=== PATIENT | female | born 1990 | race Hispanic/Latino ===

== ENCOUNTER 2018-11-30 20:50 | Inpatient (IN) | payer OTHER ==
[2018-11-30] MEDS ORDERED: BRETHINE IVP PRN (22:42)
[2018-11-30] MEDS ORDERED: XYLOCAINE 2% INFILTRATI ONE (22:42)
[2018-11-30] MEDS ORDERED: ZOFRAN IV PRN (22:42)
[2018-11-30] MEDS ORDERED: BRETHINE SUB-Q PRN (22:42)
[2018-11-30] MEDS ORDERED: MINERAL OIL PO PRN (22:42)
[2018-11-30 22:59] LABS: Basophils % (Auto) 0.2 % (0.0-1.8); Eosinophils # (Auto) 0.2 K/mm3 (0.0-0.4); Eosinophils % (Auto) 1.5 % (0.0-4.3); Hemoglobin 11.8 gm/dl (10.1-14.3); Lymphocytes # (Auto) 3.4 K/mm3 (1.2-5.4); Lymphocytes % (Auto) 26.9 % (13.4-35.0); Mean Corpuscular HGB Conc 35 % (30-34); Mean Corpuscular Volume 93 fl (79-97); Monocytes # (Auto) 0.8 K/mm3 (0.0-0.8); Monocytes % (Auto) 6.3 % (0.0-7.3); Platelet Count 247 K/mm3 (140-440); Red Blood Count 3.65 M/mm3 (3.65-5.03); Red Cell Distribution Width 14.1 % (13.2-15.2)
[2018-11-30] MEDS ORDERED: PITOCin/NS 20 UNIT/1000ML DRIP 20 UNITS/1,000 ML BAG IV SCH (23:00)
[2018-11-30] MEDS ORDERED: CERVIDIL VG ONE (23:14)
[2018-11-30] MEDS ORDERED: PEPCID PO ONE (23:53)
[2018-12-01] MEDS: LACTATED RINGERS 1,000 ML IV SCH ×2 (00:07→04:22)
--- NOTE | 2018-12-01 00:21 | History and Physical Report ---
History of Present Illness Date of examination: 12/01/18 Date of admission: 11/30/18 20:50 Chief complaint: IOL postdates History of present illness: Menstrual History Regularity: regular Menses every: 28 days Duration: 4-7 LMP: 02/13/2018 LMP reliability: month known LMP character: normal test type: urine test BC at conception: none Planned ? no EDC Calculations LMP: 11/20/2018 EDC Confirmation: 11/23/2018 Gestational Age: 25 4/7 weeks Past History : 3 Term Births: 2 Premature Births: 0 Living Children: 2 Para: 2 Mult. Births: 0 Prev : 0 Prev. attempt? 0 Aborta: 0 Elect. Ab: 0 Spont. Ab: 0 Ectopics: 0 # 1 Delivery date: 2007 Weeks Gestation: 40 labor: no Delivery type: Infant Sex: Female weight: 7-5 Comments: IOL for PD # 2 Delivery date: 2010 Weeks Gestation: 39 labor: no Delivery type: Sex: Female Comments: eIOL Past Medical History: Negative Past Medical History Past Surgical History: Negative Past Surgical History Family History Summary: Sister (full) - Has Family History of Melanoma - Entered On: 08/14/2018 Aunt - Has Family History of Melanoma - Entered On: 08/14/2018 Social History: Patient is single Smoking History: Patient is a former smoker. 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 Infection History Hx of STD: none HIV Risk Eval: low risk Hepatitis B Risk Eval: low risk Personal hx. of genital herpes: no Partner hx. of genital herpes: no Rash, Viral, or Febrile illness since last LMP? no Varicella/Chicken Pox Status: Previous Disease TB Risk: no Genetic History Congenital Heart Defect: Mom: no Dad: no Todd Disease: Mom: no Dad: no Thalassemia Mom: no Dad: no Neural Tube Defect Mom: no Dad: no Down's Syndrome Mom: no Dad: no Sylvester-Sachs Mom: no Dad: no Sickle Cell Disease/Trait Mom: no Dad: no Hemophilia Mom: no Dad: no Muscular Dystrophy Mom: no Dad: no Cystic Fibrosis Mom: no Dad: no [place] Chorea Mom: no Dad: no Mental Retardation Mom: no Dad: no Fragile X Mom: no Dad: no Other Genetic/Chromosomal Disorder Mom: no Dad: no Child w/other defect Mom: no Dad: no Enviromental Exposures Xray Exposure: no Medication, drug, or alcohol use since LMP: no Chemical/Other Exposure: no Exposure to Cat Liter: no Hx of Parvovirus (Fifth Disease): no Occupational Exposure to Children: none Active Medications (reviewed today): None Current Allergies (reviewed today): No known allergies Past History Past Medical History: other (see HPI) Past Surgical History: other (Menstrual History ) 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 ) Family/Genetic History: other (Menstrual History ) Social history: other (Menstrual History ) - Obstetrical History Expected Date of Delivery: 11/23/18 Actual Gestation: 41 Week(s) 1 Day(s) : 3 Para: 2 Hx # Term Pregnancies: 2 Number of Pregnancies: 0 Spontaneous Abortions: 0 Induced : 0 Number of Living Children: 2 Medications and Allergies Allergies Allergy/AdvReac Type Severity Reaction Status Date / Time No Known Allergies Allergy Verified 11/30/18 22:48 Active Meds: Active Medications Ephedrine Sulfate (Ephedrine Sulfate) 10 mg IV Q2M PRN PRN Reason: Hypotension Oxytocin/Sodium Chloride (Pitocin/Ns 20 Unit/1000ml Drip) 20 units in 1,000 mls @ 125 mls/hr IV DIRECT DILIP Lactated Ringer's (Lactated Ringers) 1,000 mls @ 125 mls/hr IV DIRECT DILIP Mineral Oil (Mineral Oil) 30 ml PO QHS PRN PRN Reason: Constipation Ondansetron HCl (Zofran) 4 mg IV Q8H PRN PRN Reason: Nausea And Vomiting Terbutaline Sulfate (Brethine) 0.25 mg SUB-Q ONCE PRN PRN Reason: Hyperstimulation/Hypertonicity Terbutaline Sulfate (Brethine) 0.25 mg IVP ONCE PRN PRN Reason: Hyperstimulation/Hypertonicity Review of Systems All systems: negative Genitourinary: contractions - Vital Signs Vital signs: Vital Signs Pulse BP 78 115/70 11/30/18 21:37 11/30/18 21:37 Temp Pulse Resp BP Pulse Ox 99.3 F 68 18 122/73 95 11/30/18 21:38 11/30/18 23:39 11/30/18 21:38 11/30/18 23:39 11/30/18 22:00 - Physical Exam Breasts: Cardiovascular: Regular rate, Normal S1, Normal S2 Abdomen: Positive: normal appearance, soft, normal bowel sounds. Negative: distention, tenderness Genitourinary (Female): Positive: normal external genitalia, normal perenium Vulva: both: normal Vagina: Positive: normal moisture. Negative: discharge Cervix: Negative: lesion, discharge Uterus: Positive: normal size, normal contour Adnexa: both: normal Anus/Rectum: Positive: normal perianal skin, heme negative. Negative: rectal mass, hemorrhoids Extremities: Deep Tendon Reflex Grade: Normal +2 - Obstetrical FHR: auscultation normal, category 1 Uterine Contraction Monitor Mode: External Cervical Dilatation: 2 Cervical Effacement Percentage: 60 station: -3 Uterine Contraction Pattern: Regular Uterine Tone Measurement Phase: Contraction Uterine Contraction Intensity: Mild Results Result Diagrams: 11/30/18 22:15 Abnormal lab results 11/30/18 Range/Units 22:15 WBC 12.7 H (4.5-11.0) K/mm3 MCHC 35 H (30-34) % Seg Neutrophils # 8.3 H (1.8-7.7) K/mm3 All other labs normal. Assessment and Plan 28 y.o. IUP at 41w1d presents for scheduled postdates IOL. Routine admission orders in EMR. GBS is negative. on chart. VSSAF. Cervidil placed by RN. Pt desires epidural for pain management when labor begins. Expecting a baby boy, desires circumcision. Will continue to monitor for labor, anticipate .
[2018-12-01] MEDS ORDERED: SUBLIMAZE IV PRN (01:30)
[2018-12-01] MEDS ORDERED: SUBLIMAZE ONE (01:35)
[2018-12-01] MEDS ORDERED: NARCAN 2 MG/2 ML IV PRN (04:16)
--- NOTE | 2018-12-01 04:16 | Anesthesia Consultation ---
Anesthesia Consult and Med Hx Date of service: 12/01/18 - Airway Anesthetic Teeth Evaluation: Good ROM Head & Neck: Adequate Mental/Hyoid Distance: Adequate Mallampati Class: Class II Intubation Access Assessment: Probably Good - Pulmonary Exam CTA: Yes - Cardiac Exam Cardiac Exam: RRR - Pre-Operative Health Status ASA Pre-Surgery Classification: ASA2 Proposed Anesthetic Plan: Epidural - Pulmonary Hx Asthma: No - Cardiovascular System Hx Hypertension: No - Central Nervous System Hx Seizures: No Hx Psychiatric Problems: No - Endocrine Hx Renal Disease: No Hx Hypothyroidism: No Hx Hyperthyroidism: No - Hematic Hx Anemia: No Hx Sickle Cell Disease: No - Other Systems Hx Alcohol Use: No
[2018-12-01] MEDS ORDERED: fentaNYL-BUPIV 2 MCG/ML-0.125% 200 MCG/100 ML BAG EPIDURAL SCH (05:00)
--- NOTE | 2018-12-01 05:20 | Progress Note ---
Assessment and Plan - Patient Problems (1) 41 weeks gestation of Onset Date: ~12/01/18 Current Visit: Yes Status: Acute Plan to address problem: Pt comfortable with epidural SVE 4,th,-3 Will plan to start pitocin per protocol. FHR Cat 1 All questions addressed. Subjective - Subjective Date of service: 12/01/18 (pt comfortable with epidural ) Principal diagnosis: IUP@ 41w for IOL Patient reports: loss of fluid (meconium stained), movement normal Objective - Vital Signs Vital Signs: Vital Signs - 12hr 11/30/18 11/30/18 11/30/18 21:37 21:38 21:40 Temperature 99.3 F Pulse Rate 78 91 H Respiratory 18 Rate Blood Pressure 115/70 O2 Sat by Pulse 96 Oximetry 11/30/18 11/30/18 11/30/18 21:45 21:50 21:55 Temperature Pulse Rate 90 99 H 89 Respiratory Rate Blood Pressure O2 Sat by Pulse 96 95 94 Oximetry 11/30/18 11/30/18 11/30/18 22:00 22:14 22:32 Temperature Pulse Rate 84 94 H 80 Respiratory Rate Blood Pressure 114/71 112/74 O2 Sat by Pulse 95 Oximetry 11/30/18 11/30/18 12/01/18 23:23 23:39 01:34 Temperature Pulse Rate 80 68 80 Respiratory Rate Blood Pressure 128/79 122/73 O2 Sat by Pulse 97 Oximetry 12/01/18 12/01/18 12/01/18 01:39 01:44 01:49 Temperature Pulse Rate 65 68 73 Respiratory Rate Blood Pressure O2 Sat by Pulse 96 98 96 Oximetry 12/01/18 12/01/18 12/01/18 01:54 01:59 02:04 Temperature Pulse Rate 71 77 71 Respiratory Rate Blood Pressure O2 Sat by Pulse 96 96 97 Oximetry 12/01/18 12/01/18 12/01/18 02:09 02:14 02:19 Temperature Pulse Rate 65 68 73 Respiratory Rate Blood Pressure O2 Sat by Pulse 97 96 96 Oximetry 12/01/18 12/01/18 12/01/18 02:24 02:29 02:34 Temperature Pulse Rate 65 79 70 Respiratory Rate Blood Pressure O2 Sat by Pulse 96 95 96 Oximetry 12/01/18 12/01/18 12/01/18 02:39 02:44 02:49 Temperature Pulse Rate 77 81 76 Respiratory Rate Blood Pressure O2 Sat by Pulse 96 97 97 Oximetry 12/01/18 12/01/18 12/01/18 02:59 03:00 03:04 Temperature 99 F Pulse Rate 79 74 Respiratory 18 Rate Blood Pressure O2 Sat by Pulse 98 99 Oximetry 12/01/18 12/01/18 12/01/18 03:09 03:14 03:19 Temperature Pulse Rate 79 66 66 Respiratory Rate Blood Pressure O2 Sat by Pulse 99 98 98 Oximetry 12/01/18 12/01/18 12/01/18 03:24 03:29 03:34 Temperature Pulse Rate 63 73 66 Respiratory Rate Blood Pressure O2 Sat by Pulse 99 97 98 Oximetry 12/01/18 12/01/18 12/01/18 03:39 03:44 03:49 Temperature Pulse Rate 66 62 68 Respiratory Rate Blood Pressure O2 Sat by Pulse 98 98 98 Oximetry 12/01/18 12/01/18 12/01/18 03:54 03:59 04:04 Temperature Pulse Rate 71 60 77 Respiratory Rate Blood Pressure O2 Sat by Pulse 98 99 97 Oximetry 12/01/18 12/01/18 12/01/18 04:09 04:14 04:23 Temperature Pulse Rate 67 96 H 85 Respiratory Rate Blood Pressure O2 Sat by Pulse 99 99 98 Oximetry 12/01/18 12/01/18 12/01/18 04:28 04:30 04:32 Temperature Pulse Rate 92 H 89 75 Respiratory Rate Blood Pressure 128/66 121/60 O2 Sat by Pulse 99 Oximetry 12/01/18 12/01/18 12/01/18 04:33 04:36 04:38 Temperature Pulse Rate 84 80 81 Respiratory Rate Blood Pressure 124/57 O2 Sat by Pulse 98 98 Oximetry 12/01/18 12/01/18 12/01/18 04:39 04:41 04:43 Temperature Pulse Rate 78 88 74 Respiratory Rate Blood Pressure 104/59 101/57 O2 Sat by Pulse 98 Oximetry 12/01/18 12/01/18 12/01/18 04:45 04:47 04:48 Temperature Pulse Rate 76 96 H 71 Respiratory Rate Blood Pressure 99/57 98/55 O2 Sat by Pulse 98 Oximetry 12/01/18 12/01/18 12/01/18 04:51 04:53 04:54 Temperature Pulse Rate 67 73 71 Respiratory Rate Blood Pressure 97/55 99/56 O2 Sat by Pulse 98 Oximetry 12/01/18 12/01/18 12/01/18 04:57 04:58 05:00 Temperature Pulse Rate 71 103 H 78 Respiratory Rate Blood Pressure 99/58 100/59 O2 Sat by Pulse 99 Oximetry 12/01/18 12/01/18 12/01/18 05:02 05:03 05:06 Temperature Pulse Rate 83 74 78 Respiratory Rate Blood Pressure 92/56 99/61 O2 Sat by Pulse 100 Oximetry 12/01/18 12/01/18 12/01/18 05:08 05:11 05:12 Temperature 98.0 F Pulse Rate 65 94 H Respiratory 18 Rate Blood Pressure 100/59 96/58 O2 Sat by Pulse 98 Oximetry 12/01/18 12/01/18 12/01/18 05:13 05:15 05:18 Temperature Pulse Rate 89 82 79 Respiratory Rate Blood Pressure 105/55 95/53 O2 Sat by Pulse 98 Oximetry - Exam Breasts: deferred Cardiovascular: Regular rate Lungs: Normal air movement Abdomen: Present: normal appearance, soft. Absent: distention, tenderness Uterus: Present: normal FHR: auscultation normal, category 1 Uterine Contraction Monitor Mode: External Cervical Dilatation: 4 Cervical Effacement Percentage: 50 station: -3 Uterine Contraction Pattern: Irregular Uterine Tone Measurement Phase: Resting Uterine Contraction Intensity: Moderate Extremities: normal Deep Tendon Reflex Grade: Normal +2 - Labs Labs: Abnormal Labs 11/30/18 22:15 WBC 12.7 H MCHC 35 H Seg Neutrophils # 8.3 H Laboratory Results - last 24 hr 11/30/18 11/30/18 22:15 22:15 WBC 12.7 H RBC 3.65 Hgb 11.8 Hct 34.0 MCV 93 MCH 32 MCHC 35 H RDW 14.1 Plt Count 247 Lymph % (Auto) 26.9 [place] % (Auto) 6.3 Eos % (Auto) 1.5 Baso % (Auto) 0.2 Lymph # 3.4 [place] # 0.8 Eos # 0.2 Baso # 0.0 Seg Neutrophils % 65.1 Seg Neutrophils # 8.3 H Blood Type O POSITIVE Antibody Screen Negative
[2018-12-01] MEDS ORDERED: PITOCin/NS 30 UNIT/500ML 30 UNITS/500 ML BAG IV SCH (06:00)
--- NOTE | 2018-12-01 06:05 | Event Note ---
Date: 12/01/18 (decel noted) pt turned to side Pit @ 4mu SVE 5-6,thick,-2 Continue to labor
--- NOTE | 2018-12-01 06:44 | Progress Note ---
Assessment and Plan - Patient Problems (1) 41 weeks gestation of Onset Date: ~12/01/18 Current Visit: Yes Status: Acute Plan to address problem: Pt sleeping Early decels noted Anticipate delivery Subjective - Subjective Date of service: 12/01/18 (Pt sleeping) Principal diagnosis: IUP@ 41w for IOL Patient reports: loss of fluid (meconium stained), movement normal Objective - Vital Signs Vital Signs: Vital Signs - 12hr 11/30/18 11/30/18 11/30/18 21:37 21:38 21:40 Temperature 99.3 F Pulse Rate 78 91 H Respiratory 18 Rate Blood Pressure 115/70 O2 Sat by Pulse 96 Oximetry 11/30/18 11/30/18 11/30/18 21:45 21:50 21:55 Temperature Pulse Rate 90 99 H 89 Respiratory Rate Blood Pressure O2 Sat by Pulse 96 95 94 Oximetry 11/30/18 11/30/18 11/30/18 22:00 22:14 22:32 Temperature Pulse Rate 84 94 H 80 Respiratory Rate Blood Pressure 114/71 112/74 O2 Sat by Pulse 95 Oximetry 11/30/18 11/30/18 12/01/18 23:23 23:39 01:34 Temperature Pulse Rate 80 68 80 Respiratory Rate Blood Pressure 128/79 122/73 O2 Sat by Pulse 97 Oximetry 12/01/18 12/01/18 12/01/18 01:39 01:44 01:49 Temperature Pulse Rate 65 68 73 Respiratory Rate Blood Pressure O2 Sat by Pulse 96 98 96 Oximetry 12/01/18 12/01/18 12/01/18 01:54 01:59 02:04 Temperature Pulse Rate 71 77 71 Respiratory Rate Blood Pressure O2 Sat by Pulse 96 96 97 Oximetry 12/01/18 12/01/18 12/01/18 02:09 02:14 02:19 Temperature Pulse Rate 65 68 73 Respiratory Rate Blood Pressure O2 Sat by Pulse 97 96 96 Oximetry 12/01/18 12/01/18 12/01/18 02:24 02:29 02:34 Temperature Pulse Rate 65 79 70 Respiratory Rate Blood Pressure O2 Sat by Pulse 96 95 96 Oximetry 12/01/18 12/01/18 12/01/18 02:39 02:44 02:49 Temperature Pulse Rate 77 81 76 Respiratory Rate Blood Pressure O2 Sat by Pulse 96 97 97 Oximetry 0812/01/18 12/01/18 02:59 03:00 03:04 Temperature 99 F Pulse Rate 79 74 Respiratory 18 Rate Blood Pressure O2 Sat by Pulse 98 99 Oximetry 12/01/18 12/01/18 12/01/18 03:09 03:14 03:19 Temperature Pulse Rate 79 66 66 Respiratory Rate Blood Pressure O2 Sat by Pulse 99 98 98 Oximetry 12/01/18 12/01/18 12/01/18 03:24 03:29 03:34 Temperature Pulse Rate 63 73 66 Respiratory Rate Blood Pressure O2 Sat by Pulse 99 97 98 Oximetry 12/01/18 12/01/18 12/01/18 03:39 03:44 03:49 Temperature Pulse Rate 66 62 68 Respiratory Rate Blood Pressure O2 Sat by Pulse 98 98 98 Oximetry 12/01/18 12/01/18 12/01/18 03:54 03:59 04:04 Temperature Pulse Rate 71 60 77 Respiratory Rate Blood Pressure O2 Sat by Pulse 98 99 97 Oximetry 12/01/18 12/01/18 12/01/18 04:09 04:14 04:23 Temperature Pulse Rate 67 96 H 85 Respiratory Rate Blood Pressure O2 Sat by Pulse 99 99 98 Oximetry 12/01/18 12/01/18 12/01/18 04:28 04:30 04:32 Temperature Pulse Rate 92 H 89 75 Respiratory Rate Blood Pressure 128/66 121/60 O2 Sat by Pulse 99 Oximetry 12/01/18 12/01/18 12/01/18 04:33 04:36 04:38 Temperature Pulse Rate 84 80 81 Respiratory Rate Blood Pressure 124/57 O2 Sat by Pulse 98 98 Oximetry 12/01/18 12/01/18 12/01/18 04:39 04:41 04:43 Temperature Pulse Rate 78 88 74 Respiratory Rate Blood Pressure 104/59 101/57 O2 Sat by Pulse 98 Oximetry 12/01/18 12/01/18 12/01/18 04:45 04:47 04:48 Temperature Pulse Rate 76 96 H 71 Respiratory Rate Blood Pressure 99/57 98/55 O2 Sat by Pulse 98 Oximetry 12/01/18 12/01/18 12/01/18 04:51 04:53 04:54 Temperature Pulse Rate 67 73 71 Respiratory Rate Blood Pressure 97/55 99/56 O2 Sat by Pulse 98 Oximetry 12/01/18 12/01/18 12/01/18 04:57 04:58 05:00 Temperature Pulse Rate 71 103 H 78 Respiratory Rate Blood Pressure 99/58 100/59 O2 Sat by Pulse 99 Oximetry 12/01/18 12/01/18 12/01/18 05:02 05:03 05:06 Temperature Pulse Rate 83 74 78 Respiratory Rate Blood Pressure 92/56 99/61 O2 Sat by Pulse 100 Oximetry 12/01/18 12/01/18 12/01/18 05:08 05:11 05:12 Temperature 98.0 F Pulse Rate 65 94 H Respiratory 18 Rate Blood Pressure 100/59 96/58 O2 Sat by Pulse 98 Oximetry 12/01/18 12/01/18 12/01/18 05:13 05:15 05:18 Temperature Pulse Rate 89 82 74 Respiratory Rate Blood Pressure 105/55 95/53 O2 Sat by Pulse 98 98 Oximetry 12/01/18 12/01/18 12/01/18 05:21 05:23 05:24 Temperature Pulse Rate 68 85 89 Respiratory Rate Blood Pressure 99/56 92/53 O2 Sat by Pulse 96 Oximetry 12/01/18 12/01/18 12/01/18 05:27 05:28 05:29 Temperature Pulse Rate 65 95 H 87 Respiratory Rate Blood Pressure 96/56 94/54 O2 Sat by Pulse 98 Oximetry 12/01/18 12/01/18 12/01/18 05:33 05:36 05:38 Temperature Pulse Rate 97 H 65 94 H Respiratory Rate Blood Pressure 97/55 96/60 O2 Sat by Pulse 97 97 Oximetry 12/01/18 12/01/18 12/01/18 05:43 05:48 05:53 Temperature Pulse Rate 84 62 91 H Respiratory Rate Blood Pressure O2 Sat by Pulse 97 97 96 Oximetry 12/01/18 12/01/18 12/01/18 05:58 06:03 06:06 Temperature Pulse Rate 79 71 73 Respiratory Rate Blood Pressure 90/53 O2 Sat by Pulse 96 98 Oximetry 12/01/18 12/01/18 12/01/18 06:08 06:13 06:18 Temperature Pulse Rate 72 68 68 Respiratory Rate Blood Pressure O2 Sat by Pulse 99 98 97 Oximetry 12/01/18 12/01/18 12/01/18 06:23 06:28 06:33 Temperature Pulse Rate 69 65 71 Respiratory Rate Blood Pressure O2 Sat by Pulse 99 97 98 Oximetry 12/01/18 12/01/18 06:36 06:38 Temperature Pulse Rate 86 71 Respiratory Rate Blood Pressure 84/51 O2 Sat by Pulse 98 Oximetry - Exam Breasts: deferred Cardiovascular: Regular rate Lungs: Normal air movement Abdomen: Present: normal appearance, soft. Absent: distention, tenderness Uterus: Present: normal FHR: auscultation normal, category 1 Uterine Contraction Monitor Mode: External Cervical Dilatation: 6 Cervical Effacement Percentage: 60 station: 0 Uterine Contraction Pattern: Regular Uterine Tone Measurement Phase: Resting Uterine Contraction Intensity: Moderate Extremities: normal Deep Tendon Reflex Grade: Normal +2 - Labs Labs: Abnormal Labs 11/30/18 22:15 WBC 12.7 H MCHC 35 H Seg Neutrophils # 8.3 H Laboratory Results - last 24 hr 11/30/18 11/30/18 22:15 22:15 WBC 12.7 H RBC 3.65 Hgb 11.8 Hct 34.0 MCV 93 MCH 32 MCHC 35 H RDW 14.1 Plt Count 247 Lymph % (Auto) 26.9 [place] % (Auto) 6.3 Eos % (Auto) 1.5 Baso % (Auto) 0.2 Lymph # 3.4 [place] # 0.8 Eos # 0.2 Baso # 0.0 Seg Neutrophils % 65.1 Seg Neutrophils # 8.3 H Blood Type O POSITIVE Antibody Screen Negative
[2018-12-01] MEDS ORDERED: METHERGINE IM ONE ×2 (10:21→10:45)
[2018-12-01] MEDS ORDERED: DULCOLAX PR PRN (10:46)
[2018-12-01] MEDS ORDERED: BENADRYL PO PRN (10:46)
[2018-12-01] MEDS ORDERED: LANSINOH TP PRN (10:46)
[2018-12-01] MEDS ORDERED: TUCKS PAD TP PRN (10:46)
[2018-12-01] MEDS ORDERED: TYLENOL PO PRN (10:46)
[2018-12-01] MEDS ORDERED: MILK OF MAGNESIA PO PRN (10:46)
[2018-12-01] MEDS ORDERED: PHENERGAN PO PRN (10:46)
--- NOTE | 2018-12-01 10:50 | Procedure Note ---
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 Pit IVFs Placenta to pathology meconium staining. Mom and baby remain LDR stable - Infant A at 1 minute: 8 at 5 minutes: 9 Gender: Male (wgt 6-4)
[2018-12-01] MEDS ORDERED: SODIUM CHLORIDE FLUSH SYRINGE 10 ML IV NR (11:00)
[2018-12-01] MEDS: METHERGINE PO SCH ×2 (14:30→22:02)
[2018-12-01] MEDS: IBUPROFEN PO SCH (22:02)
[2018-12-01 23:08] LABS: Hematocrit 34.7 % (30.3-42.9); Hemoglobin 11.8 gm/dl (10.1-14.3)
[2018-12-02] MEDS: IBUPROFEN PO SCH (05:05)
[2018-12-02] MEDS: METHERGINE PO SCH (05:06)
[2018-12-02] MEDS ORDERED: BOOSTRIX IM ONE (06:00)
--- NOTE | 2018-12-02 09:33 | Progress Note ---
Assessment and Plan Pt sitting in chair eating breakfast. VSSAF. Reports pain is minimal. PP H/H 11.8/34.7. FF and 1FB below umbilicus. Light bleeding. Bottle feeding successfully. at bedside. Pt desires to be D/C home today. Plan to discharge today. - Patient Problems (1) 41 weeks gestation of Onset Date: ~12/01/18 Current Visit: Yes Status: Acute (2) Normal spontaneous vaginal delivery Onset Date: ~12/01/18 Current Visit: Yes Status: Acute Plan to address problem: Day #1. Continue pathway. To be discharged today. Subjective - Subjective Date of service: 12/02/18 ( Day #1) Principal diagnosis: IUP@ 41w for IOL Patient reports: appetite normal, voiding normally, pain well controlled, ambulating normally [place]: doing well, bottle feeding Objective - Vital Signs Latest vital signs: Vital Signs Temp Pulse Resp BP BP Pulse Ox 12/02/18 01:16 98.1 F 70 20 92/53 98 12/01/18 21:43 98.6 F 74 20 106/57 97 12/01/18 16:54 97.9 F 53 L 18 110/68 12/01/18 12:16 97.9 F 50 L 20 113/62 99 12/01/18 11:28 74 98 12/01/18 11:23 60 98 12/01/18 11:18 59 L 98 12/01/18 11:13 63 98 12/01/18 11:08 68 99 12/01/18 11:06 66 117/65 12/01/18 11:03 68 99 12/01/18 10:58 65 98 12/01/18 10:53 74 99 12/01/18 10:48 64 99 12/01/18 10:43 68 98 12/01/18 10:38 75 98 12/01/18 10:36 75 113/77 12/01/18 10:33 76 99 12/01/18 10:28 84 97 12/01/18 10:23 89 98 12/01/18 10:18 72 98 12/01/18 10:13 73 98 12/01/18 10:08 75 100 12/01/18 10:07 80 130/58 12/01/18 10:03 65 100 12/01/18 10:02 90 78 L 12/01/18 09:58 70 100 12/01/18 09:53 86 100 12/01/18 09:48 94 H 100 12/01/18 09:43 72 100 12/01/18 09:38 80 100 12/01/18 09:36 71 110/61 12/01/18 09:33 61 100 Intake and Output 12/01/18 12/02/18 12/02/18 22:59 06:59 14:59 Intake Total 960 360 Output Total 300 Balance 660 360 Intake: Oral 960 360 Output: Urine 300 Indwelling Catheter 300 Other: Total, Intake Amount 240 240 Total, Output Amount 300 # Voids Indwelling Catheter 1 Void 1 1 - Exam Breasts: Present: normal Cardiovascular: Present: Regular rate Lungs: Present: Normal air movement Abdomen: Present: normal appearance, soft Uterus: Present: normal, firm, fundal height below umbilicus Extremities: Present: normal
--- NOTE | 2018-12-02 10:57 | Discharge Summary ---
Providers - Providers Date of Admission: 11/30/18 20:50 Date of discharge: 12/02/18 Attending physician: MAI WESTON Primary care physician: MAI WESTON Hospitalization Reason for admission: induction of labor (postterm) Delivery: Episiotomy: none Laceration: none Other procedures: none complications: none Discharge diagnosis: IUP at term delivered Hospital course: IOL for postterm at 41wks. Cervdil induction with pitocin augmentation. uncomplicated. Uneventful course. Desires to go home today. Condition at discharge: Good Disposition: DC-01 TO HOME OR SELFCARE - Discharge Diagnoses (1) Normal spontaneous vaginal delivery Status: Acute (2) Single live Status: Acute Plan - Discharge Medications Prescriptions: Lidocain2.5%/Prilocai2.5% [Emla] 5 gm TP ONCE #1 tube - Provider Discharge Summary Activity: no sex for 6 weeks, no heavy lifting 4 weeks, no strenuous exercise Diet: routine Instructions: routine Additional instructions: [] Smoking cessation referral if applicable(refer to patient education folder for contact #) [] Refer to [facility] Booklet Call your doctor immediately for: * Fever > 100.5 * Heavy vaginal bleeding ( >1 pad per hour) * Severe persistent headache * Shortness of breath * Reddened, hot, painful area to leg or breast * Drainage or odor from incision. * Keep incision clean and dry at all times and follow doctor's instructions regarding bathing/showering Call office to schedule circumcision. - Follow up plan Follow up: MAI WESTON MD [Primary Care Provider] - 6 Weeks
[2018-12-02] MEDS ORDERED: M-M-R II VACCINE SUB-Q ONE (12:00)
[2018-12-02 16:25] VITALS: BP 114/64
== END 2018-12-02 16:45 | disposition home or self-care (01) | DRG 775 ==
LOC: LD 20:50 → OB 12-01 12:03
PROVIDERS: ADMIT Obstetrics & Gynecology; ATTEND Obstetrics & Gynecology
PROC: 10E0XZZ Delivery of Products of Conception, External Approach (ICD-10-PCS; principal; 2018-12-01)
PROC: 3E0P7VZ Introduction of Hormone into Female Reproductive, Via Natural or Artificial Opening (ICD-10-PCS; 2018-12-01)
PROC: 3E0R3BZ Introduction of Anesthetic Agent into Spinal Canal, Percutaneous Approach (ICD-10-PCS; 2018-12-01)
PROC: 00HU33Z Insertion of Infusion Device into Spinal Canal, Percutaneous Approach (ICD-10-PCS; 2018-12-01)
PROC: 3E0234Z Introduction of Serum, Toxoid and Vaccine into Muscle, Percutaneous Approach (ICD-10-PCS; 2018-12-02)
DX: O77.0 Labor and delivery complicated by meconium in amniotic fluid (principal); O48.0 Post-term pregnancy; Z37.0 Single live birth; Z3A.41 41 weeks gestation of pregnancy; Z23 Encounter for immunization
CPT/HCPCS: 36415; 59200; 85014; 85018; 85025; 86592; 86850; 86900; 86901; 88307; 90471; 90715; G0378; J2210; J2590; J3010; J7120; Q0169